=== PATIENT | female | born 1975 | race Hispanic/Latino ===

== ENCOUNTER 2017-10-23 13:59 | Emergency (ER) | payer SELFPAY ==
--- NOTE | 2017-10-23 15:36 | ER ---
Nurse's Notes [facility] Name: Nae Amanda Age: 42 yrs Sex: Female : 1975 Arrival Date: 10/23/2017 Time: 14:03 Bed 12 Private MD: Diagnosis: Dental Pain Presentation: 10/23 14:08 Presenting complaint: Patient states: toothache on the back of my lower jaw area; its hj been going on for 2 days now and Motrin is not helping; my L jaw is swollen too;. Transition of care: patient was not received from another setting of care. Onset of symptoms was October 23, 2017. Care prior to arrival: None. 14:08 Method Of Arrival: Ambulatory hj 14:08 Acuity: FAUSTINO 4 hj Triage Assessment: 14:10 General: Appears in no apparent distress. uncomfortable, Behavior is calm, cooperative, hj appropriate for age. Pain: Complains of pain in left jaw. EENT: Reports pain in left jaw. 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 - Social history:: Smoking status: Patient/guardian denies using tobacco, Patient/guardian denies using alcohol. Screenin:28 Abuse screen: Denies threats or abuse. Denies injuries from another. Nutritional hj screening: No deficits noted. Tuberculosis screening: No symptoms or risk factors identified. Fall Risk None identified. Vital Signs: 14:10 BP 141 / 86; Pulse 97; Resp 18; Temp 97.5(TE); Pulse Ox 100% on R/A; Weight 77.11 kg; hj Height 5 ft. 3 in. (160.02 cm); Pain 10/10; 16:28 BP 130 / 80; Pulse 94; Resp 18; Pulse Ox 100% on R/A; hj 14:10 Body Mass Index 30.11 (77.11 kg, 160.02 cm) hj ED Course: 14:03 Patient arrived in ED. mr 14:09 Triage completed. hj 14:10 Arm band placed on right wrist. hj 15:01 Edy Malik, RN is Primary Nurse. hj 15:13 Arvin Mcdonough PA is PHCP. cp 15:13 Quinn Fermin MD is Attending Physician. cp 16:28 Patient has correct armband on for positive identification. Bed in low position. Adult hj w/ patient. 16:28 No provider procedures requiring assistance completed. Patient did not have IV access hj during this emergency room visit. Administered Medications: 16:27 Drug: traMADol 50 mg Route: PO; hj 16:27 Follow up: Response: No adverse reaction hj Outcome: 15:36 Discharge ordered by MD. cp 16:28 Discharged to home ambulatory, with family. hj 16:28 Condition: stable 16:28 Discharge instructions given to patient, family, Instructed on discharge instructions, follow up and referral plans. medication usage, Demonstrated understanding of instructions, follow-up care, medications, Prescriptions given X 2. 16:39 Patient left the ED. hj Signatures: Jacques Sharlene chang Edy Malik RN RN hj Arvin Mcdonough PA PA cp Corrections: (The following items were deleted from the chart) 14:12 14:10 Pulse 97bpm; Resp 18bpm; Pulse Ox 100% RA; Temp 97.5F Temporal; 77.11 kg; Height hj 5 ft. 3 in.; BMI: 30.1; Pain 10/10; hj
--- NOTE | 2017-10-23 15:37 | EDPHYS ---
Physician Documentation [facility] Name: Nae Amanda Age: 42 yrs Sex: Female : 1975 Arrival Date: 10/23/2017 Time: 14:03 Bed 12 Private MD: ED Physician Quinn Fermin HPI: 10/23 15:32 This 42 yrs old Female presents to ER via Ambulatory with complaints of cp Toothache. 15:32 The patient presents with pain. cp 15:32 The problem is located in the lower left molar. Onset: The symptoms/episode cp began/occurred 2 day(s) ago. Duration: The symptoms are continuous. Associated signs and symptoms: Pertinent positives: pain, Pertinent negatives: dysphagia, fever, inability to eat, swelling. 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 - Social history:: Smoking status: Patient/guardian denies using tobacco, Patient/guardian denies using alcohol. ROS: 15:32 Eyes: Negative for injury, pain, redness, and discharge. cp 15:32 Constitutional: Negative for body aches, chills, fever, poor PO intake. 15:32 ENT: Positive for dental pain, Negative for drainage from ear(s), ear pain, sore cp throat, difficulty swallowing, difficulty handling secretions. 15:32 Neck: Negative for pain with movement, pain at rest, stiffness. cp 15:32 Respiratory: Negative for cough, shortness of breath, wheezing. 15:32 Abdomen/GI: Negative for abdominal pain, nausea, vomiting, and diarrhea. 15:32 Skin: Negative for cellulitis. 15:32 Neuro: Negative for dizziness, headache. 15:32 All other systems are negative. Exam: 15:32 Head/Face: Normocephalic, atraumatic. cp 15:32 Constitutional: The patient appears in no acute distress, alert, awake, non-toxic, well developed, well nourished, uncomfortable. 15:32 Eyes: Periorbital structures: appear normal. 15:32 ENT: External ear(s): are unremarkable, Ear canal(s): are normal, clear, TM's: dullness, bilaterally, Nose: is normal, Mouth: Lips: moist, Oral mucosa: pink and intact, moist, Posterior pharynx: Airway: no evidence of obstruction, patent, Tonsils: are normal in appearance, Uvula: midline, non-edematous, no erythema, swelling, is not appreciated, erythema, is not appreciated, exudate, is not appreciated, Dental exam: abscess, is not appreciated, dental caries, that is moderate, diffusely, fractured teeth are noted, specifically the lower left third molar (#17), missing teeth, diffusely, pain, that is moderate, specifically in the lower left third molar (#17), Voice: is normal. 15:32 Neck: ROM/movement: pain, that is mild, left lateral neck. limited range of motion, is not appreciated, Meningeal signs: are not present, nuchal rigidity, is not appreciated. 15:32 Chest/axilla: Inspection: normal, Palpation: is normal, no crepitus, no tenderness. cp 15:32 Cardiovascular: Rate: normal, Rhythm: regular. cp 15:32 Respiratory: the patient does not display signs of respiratory distress, Respirations: normal, no use of accessory muscles, no retractions, no splinting, no tachypnea. 15:32 Abdomen/GI: Exam negative for discomfort, distension, guarding, Inspection: abdomen appears normal. 15:32 Skin: cellulitis, is not appreciated, no rash present. Vital Signs: 14:10 BP 141 / 86; Pulse 97; Resp 18; Temp 97.5(TE); Pulse Ox 100% on R/A; Weight 77.11 kg; hj Height 5 ft. 3 in. (160.02 cm); Pain 10/10; 16:28 BP 130 / 80; Pulse 94; Resp 18; Pulse Ox 100% on R/A; hj 14:10 Body Mass Index 30.11 (77.11 kg, 160.02 cm) MDM: 15:13 Patient medically screened. cp 15:35 Data reviewed: vital signs, nurses notes. cp 15:35 Differential diagnosis: dental caries, dental abscess, pericoronitis, cp gingivostomatitis. Counseling: I had a detailed discussion with the patient and/or guardian regarding: the historical points, exam findings, and any diagnostic results supporting the discharge/admit diagnosis, the need for outpatient follow up, for definitive care, a dentist, to return to the emergency department if symptoms worsen or persist or if there are any questions or concerns that arise at home. Response to treatment: There is no appreciated change of the patient's symptoms at this time. Administered Medications: 16:27 Drug: traMADol 50 mg Route: PO; 16:27 Follow up: Response: No adverse reaction Disposition: 18:45 Co-signature as Attending Physician, Quinn Fermin MD. ma2 Disposition: 10/23/17 15:36 Discharged to Home. Impression: Dental Pain. - Condition is Stable. - Discharge Instructions: Dental Pain. - Prescriptions for Amoxicillin 875 mg Oral Tablet - take 1 tablet by ORAL route every 12 hours for 10 days; 20 tablet. Tramadol 50 mg Oral Tablet - take 1 tablet by ORAL route every 8 hours as needed; 12 tablet. - Medication Reconciliation Form, Thank You Letter, Antibiotic Education, Prescription Opioid Use form. - Follow up: Private Physician; When: 2 - 3 days; Reason: Recheck today's complaints. - Problem is new. - Symptoms are unchanged. Signatures: Edy Malik RN RN hj Page, Corey, PA PA cp Alzahri, Mohammad, MD MD ma2
[2017-10-23] MEDS ORDERED: TRAMADOL HCL 50 MG TAB ONE (16:43)
[2017-10-23 16:49] VITALS: TEMP 97.5; O2SAT 100
[2017-10-23 16:51] VITALS: BP 130/80
== END 2017-10-23 16:39 | disposition home or self-care (01) ==
LOC: ER 13:59
DX: K08.89 Other specified disorders of teeth and supporting structures (principal)
CPT/HCPCS: 99283